=== PATIENT | female | born 1965 | race Caucasian/White ===

== ENCOUNTER → 2017-03-25 | Outpatient (CLI) | payer OTHER ==
--- NOTE | 2017-03-26 09:46 | MM ---
Reason for exam: screening (asymptomatic). Last mammogram was performed 1 year and 2 months ago. History: Family history of breast cancer in maternal aunt, breast cancer in aunt, and premenopausal breast cancer in mother at age 40. Benign excisional biopsy of the right breast, May 28, 2004. Stereotactic core biopsy of the left breast, April 11, 2003. Excisional biopsy of the left breast. Physical Findings: Nurse did not find any significant physical abnormalities on exam. MG 3D Screening Mammo W/Cad Bilateral CC and MLO view(s) were taken. Prior study comparison: February 06, 2016, bilateral MG 3d screening mammo w/cad. January 25, 2015, bilateral MG screening mammo w CAD. The breast tissue is extremely dense which could obscure a lesion on mammography. Finding: There are calcifications in the upper outer and upper inner quadrant of the left breast and in the right central breast. ASSESSMENT: Incomplete: need additional imaging evaluation, BI-RAD 0 RECOMMENDATION: Special view mammogram of both breasts. [facility] will attempt to contact patient to return for supplemental views.
== END | disposition home or self-care (01) ==
LOC: RADMAMWWP 10:21
PROVIDERS: ATTEND Internal Medicine
DX: Z12.31 Encounter for screening mammogram for malignant neoplasm of breast (principal)
CPT/HCPCS: 77063; 77067

== ENCOUNTER → 2017-03-27 | Outpatient (CLI) | payer OTHER ==
--- NOTE | 2017-03-27 11:20 | MM ---
Reason for exam: additional evaluation requested from abnormal screening. Last mammogram was performed less than 1 month ago. History: Patient is postmenopausal. Family history of breast cancer in maternal aunt, breast cancer in aunt, and premenopausal breast cancer in mother at age 40. Benign excisional biopsy of the right breast, May 28, 2004. Stereotactic core biopsy of the left breast, April 11, 2003. Excisional biopsy of the left breast. Physical Findings: Nurse did not find any significant physical abnormalities on exam. MG 3D Work Up W/Cad CALLI Bilateral CC with magnification, ML with magnification, and ML view(s) were taken. Prior study comparison: March 25, 2017, bilateral MG 3d screening mammo w/cad. February 06, 2016, bilateral MG 3d screening mammo w/cad. Finding: There are probably benign calcifications in both breasts some of which layer. 6 month follow up recommended. These results were verbally communicated with the patient and result sheet given to the patient on 03/27/17. ASSESSMENT: Probably benign, BI-RAD 3 RECOMMENDATION: Follow-up diagnostic mammogram of both breasts in 6 months.
== END | disposition home or self-care (01) ==
LOC: RADMAMWWP 08:23
PROVIDERS: ATTEND Internal Medicine
DX: R92.8 Other abnormal and inconclusive findings on diagnostic imaging of breast (principal)
CPT/HCPCS: 77066; G0279

== ENCOUNTER → 2017-11-05 | Outpatient (CLI) | payer OTHER ==
--- NOTE | 2017-11-05 14:30 | MM ---
Reason for exam: additional evaluation requested from prior study. Last mammogram was performed 7 months ago. History: Patient is postmenopausal. Family history of breast cancer in maternal aunt, breast cancer in aunt, and premenopausal breast cancer in mother at age 40. Benign excisional biopsy of the right breast, May 28, 2004. Stereotactic core biopsy of the left breast, April 11, 2003. Excisional biopsy of the left breast. Physical Findings: Nurse did not find any significant physical abnormalities on exam. MG 3D Diag Mammo W/Cad CALLI Bilateral CC and MLO view(s) were taken. XCCM view(s) were taken of the right breast. Prior study comparison: March 27, 2017, bilateral MG 3d work up w/cad CALLI. March 25, 2017, bilateral MG 3d screening mammo w/cad. The breast tissue is heterogeneously dense. This may lower the sensitivity of mammography. There are stable scattered microcalcifications bilaterally nonspecific. There is chronic nodularity bilaterally. These results were verbally communicated with the patient and result sheet given to the patient on 11/05/17. ASSESSMENT: Probably benign, BI-RAD 3 RECOMMENDATION: Follow-up diagnostic mammogram of both breasts in 6 months.
== END | disposition home or self-care (01) ==
LOC: RADMAMWWP 13:32
PROVIDERS: ATTEND Internal Medicine
DX: R92.8 Other abnormal and inconclusive findings on diagnostic imaging of breast (principal)
CPT/HCPCS: 77062; 77066

== ENCOUNTER → 2018-05-13 | Outpatient (CLI) | payer OTHER ==
--- NOTE | 2018-05-13 11:14 | MM ---
Reason for exam: follow-up at short interval from prior study. Last mammogram was performed 6 months ago. History: Patient is postmenopausal. Family history of breast cancer in maternal aunt, breast cancer in aunt, and premenopausal breast cancer in mother at age 40. Benign excisional biopsy of the right breast, May 28, 2004. Stereotactic core biopsy of the left breast, April 11, 2003. Excisional biopsy of the left breast. Physical Findings: Nurse did not find any significant physical abnormalities on exam. MG 3D Diag Mammo W/Cad CALLI Bilateral CC and MLO view(s) were taken. Spot compression CC and spot compression LM view(s) were taken of the left breast. Prior study comparison: November 05, 2017, bilateral MG 3d diag mammo w/cad CALLI. March 27, 2017, bilateral MG 3d work up w/cad CALLI. The breast tissue is heterogeneously dense. This may lower the sensitivity of mammography. Finding: There are indetermiante grouped/clustered calcifications in the upper outer quadrant of the left breast. These results were verbally communicated with the patient and result sheet given to the patient on 05/13/18. ASSESSMENT: Suspicious, BI-RAD 4 RECOMMENDATION: Stereotactic core biopsy of the left breast. Called Dr. Kunz with mammographic findings and has scheduled an appointment for the patient for 05/25/18 at 10:[address] Chaudhary. Biopsy scheduled for 05/19/18 at 10:20. PRELIMINARY REPORT CALLED AND FAXED TO DR. CHAUDHARY ON 05/13/18.
== END | disposition home or self-care (01) ==
LOC: RADMAMWWP 09:32
PROVIDERS: ATTEND Internal Medicine
DX: R92.8 Other abnormal and inconclusive findings on diagnostic imaging of breast (principal)
CPT/HCPCS: 77062; 77066

== ENCOUNTER → 2018-05-19 | Day surgery (SDC) | payer OTHER ==
[2018-05-19 09:40] VITALS: RESP 16; BMI 23.3
[2018-05-19 10:58] VITALS: BP 144/78; PULSE 60; TEMP 98.1
--- NOTE | 2018-05-19 13:07 | MM ---
Stereotactic Mammotome core biopsy left breast. HISTORY: Microcalcifications The Microcalcifications in question within the left breast were targeted by the undersigned. Procedu re was performed by the undersigned. Informed consent was obtained and all of the patients questions were answered. The standard sterile technique was utilized and appropriate local anesthesia was obta ined with 1% licocaine. Mammotome probe was advanced and multiple core samples were obtained and sen t to pathology for interpretation. Microclip marker was deployed at the site of biopsy. Post proced ural mammogram demonstrates appropriate deployment of radiopaque clip marker. The patient tolerated the procedure well and left the department in stable condition. Pathology results are pending. IMPRESSION: Successful stereotactic core biopsy left breast with pathology results pending.
== END ==
LOC: RADMAMWWP 09:18
PROVIDERS: ATTEND Student in an Organized Health Care Education/Training Program
DX: N60.12 Diffuse cystic mastopathy of left breast (principal); N60.22 Fibroadenosis of left breast; D24.2 Benign neoplasm of left breast
CPT/HCPCS: 88305; 19081; A4648; J2001

== ENCOUNTER → 2018-11-27 | Outpatient (CLI) | payer OTHER ==
--- NOTE | 2018-11-27 12:17 | USB ---
Reason for exam: follow-up at short interval from prior study. History: Patient is postmenopausal. Family history of breast cancer in maternal aunt, breast cancer in aunt, and premenopausal breast cancer in mother at age 40. Benign MG stereo VAD BX LT of the left breast, May 19, 2018. Benign excisional biopsy of the right breast, May 28, 2004. Stereotactic core biopsy of the left breast, April 11, 2003. Excisional biopsy of the left breast. Physical Findings: Nurse did not find any significant physical abnormalities on exam. US Breast LT Left complete breast ultrasound includes all four quadrants, the retroareolar region and axilla. Finding demonstrates no cystic or solid lesion seen. Dense tissue throughout. Multifocal dense tissue. These results were verbally communicated with the patient and result sheet given to the patient on 11/27/18. ASSESSMENT: Incomplete: need additional imaging evaluation, BI-RAD 0 RECOMMENDATION: Follow-up diagnostic mammogram of the left breast.
--- NOTE | 2018-11-27 12:20 | MM ---
Reason for exam: follow-up at short interval from prior study. Last mammogram was performed 6 months ago. History: Patient is postmenopausal. Family history of breast cancer in maternal aunt, breast cancer in aunt, and premenopausal breast cancer in mother at age 40. Benign MG stereo VAD BX LT of the left breast, May 19, 2018. Benign excisional biopsy of the right breast, May 28, 2004. Stereotactic core biopsy of the left breast, April 11, 2003. Excisional biopsy of the left breast. MG 3D Diag Mammo W/Cad LT CC, MLO, and XCCL view(s) were taken of the left breast. Prior study comparison: May 13, 2018, bilateral MG 3d diag mammo w/cad [facility]. November 05, 2017, bilateral MG 3d diag mammo w/cad CALLI. The breast tissue is extremely dense which could obscure a lesion on mammography. There are benign appearing similar left calcifications and upper outer quadrant biopsy marker. No suspicious abnormality. Chronic known left nipple inversion. No significant new findings when compared with previous films. These results were verbally communicated with the patient and result sheet given to the patient on 11/27/18. ASSESSMENT: Benign, BI-RAD 2 RECOMMENDATION: Routine screening mammogram of both breasts in 5 months. Back on schedule for March 2019.
== END | disposition home or self-care (01) ==
LOC: RADUSWWP 10:13
PROVIDERS: ATTEND Internal Medicine
DX: R92.8 Other abnormal and inconclusive findings on diagnostic imaging of breast (principal)
CPT/HCPCS: 77061; 77065

== ENCOUNTER → 2019-11-15 | Outpatient (CLI) | payer OTHER ==
--- NOTE | 2019-11-15 08:23 | US ---
EXAMINATION TYPE: US kidneys/renal and bladder DATE OF EXAM: 11/15/2019 COMPARISON: CT CLINICAL HISTORY: R31.9 Hematuria; M54.5 Low back pain. Bilateral flank pain , especially left and mi croscopic hematuria per patient EXAM MEASUREMENTS: Right Kidney: 11.1 x 5.7 x 3.9 cm Left Kidney: 12.0 x 5.1 x 5.0 cm Post Void Residual Volume: 7.2 mL Right Kidney: No hydronephrosis or masses seen Left Kidney: No hydronephrosis or masses seen Bladder: Limited due to incomplete distention Bilateral Jets seen: not seen after 3 minute observation Normal Post Void Residual: yes IMPRESSION: No hydronephrosis or nephrolithiasis. No solid or cystic renal mass. Bladder is limited in evaluation due to incomplete distention.
== END | disposition home or self-care (01) ==
LOC: RADUSWWP 07:05
PROVIDERS: ATTEND Internal Medicine
DX: R31.9 Hematuria, unspecified (principal); M54.5 Low back pain
CPT/HCPCS: 76770

== ENCOUNTER 2021-09-19 13:14 | Emergency (ER) | payer OTHER ==
[2021-09-19 13:20] VITALS: RESP 18
[2021-09-19] MEDS ORDERED: KETOROLAC 15 MG/ML 1 ML VIAL IVP STA (13:33)
[2021-09-19] MEDS ORDERED: SODIUM CHLORIDE 0.9% 1,000 ML IV STA (13:33)
[2021-09-19] MEDS ORDERED: diphenhydrAMINE 50 MG/ML 1 ML VIAL IVP STA (13:33)
[2021-09-19] MEDS ORDERED: ONDANSETRON 4 MG/2 ML VIAL IVP STA (13:33)
--- NOTE | 2021-09-19 13:36 | ED ---
General Adult HPI - General Chief complaint: Syncope Stated complaint: Syncope Time Seen by Provider: 09/19/21 13:20 Source: patient, EMS Mode of arrival: EMS Limitations: no limitations - History of Present Illness Initial comments: Dictation was produced using [employer] dictation software. please excuse any grammatical, word or spelling errors. Chief Complaint: 55-year-old female presents emergency department for syncope History of Present Illness: 85-year-old female presents emergency department for syncope. Patient states that earlier today she [place] when she was sitting at the table. She lost consciousness briefly. Sick above so was witnessed by fellow member. She states that she was unconscious for seconds. No postictal state or history of convulsing movements. Patient states that she fell back however her head was caught by a possible. Patient denies any scalp pain or neck pain. Patient states that she feels improved. She had several alcoholic beverages last night. Patient states that it's very hot and humid at the Site. Denies any numbness and or paresthesias to the arms or legs. patient reports that now she has a mild headache that feels like headaches she's had in the past. Patient denies any cardiac history. States that just prior to the syncope she had some visual changes at that lasted briefly. Denies any palpitations. Patient denies any cardiac history. The ROS documented in this emergency department record has been reviewed and confirmed by me. Those systems with pertinent positive or negative responses have been documented in the HPI. All other systems are other negative and/or noncontributory. PHYSICAL EXAM: General Impression: Alert and oriented x3, not in acute distress HEENT: Normocephalic atraumatic, extra-ocular movements intact, pupils equal and reactive to light bilaterally, mucous membranes moist. Cardiovascular: Heart regular rate and rhythm Chest: Able to complete full sentences, no retractions, no tachypnea Abdomen: abdomen soft, non-tender, non-distended, no organomegaly Musculoskeletal: Pulses present and equal in all extremities, no peripheral edema Motor: no focal deficits noted Neurological: CN II-XII grossly intact, no focal motor or sensory deficits noted Skin: Intact with no visualized rashes Psych: Normal affect and mood ED course: 55-year-old female presents emergency per a syncopal episode. Vital signs upon arrival are within acceptable limits. Patient's well appearing at bedside. EKG does not show any signs of acute processes. Patient states that she is having a migraine headache. Patient observed in the emergency department for approximately one hour 2 minutes. Patient reevaluated bedside at 2:20 PM found to be in stable medical condition. Appetite evaluation obtained. CBC unremarkable. Metabolic panel shows mild acidosis. Highly suspect that patient's syncopal episode was due to mild dehydration. Patient has no high-risk features. Denies any cardiac history. Patient has stable vitals well-appearing. He was better after headache cocktail. Disposition options were discussed. Patient is agreeable for discharge with follow-up to primary care doctor. Patient advised to hydrate herself well and avoid any alcohol for the time being. EKG interpretation: Ventricular rate 73, sinus rhythm,. 180, QS 82, QTc 433. No IA prolongation, no QTC prolongation, no ST or T-wave changes noted. Overall, this EKG is unremarkable - Related Data Home Medications Medication Instructions Recorded Confirmed Losartan Potassium [Cozaar] 100 mg PO DAILY 05/13/18 09/19/21 atenoloL [Tenormin] 25 mg PO HS 09/19/21 09/19/21 Allergies Allergy/AdvReac Type Severity Reaction Status Date / Time Penicillins Allergy Rash/Hives Verified 09/19/21 14:11 erythromycin base AdvReac Unknown Verified 09/19/21 14:11 Review of Systems ROS Statement: Those systems with pertinent positive or pertinent negative responses have been documented in the HPI. ROS Other: All systems not noted in ROS Statement are negative. Past Medical History Past Medical History: Asthma, Hypertension History of Any Multi-Drug Resistant Organisms: None Reported Past Surgical History: Breast Surgery, Section, Cholecystectomy Additional Past Surgical History / Comment(s): RIGHT EXCISIONAL, LEFT EXCISIONAL Past Anesthesia/Blood Transfusion Reactions: No Reported Reaction Past Psychological History: No Psychological Hx Reported Smoking Status: Current every day smoker Past Alcohol Use History: Daily Past Drug Use History: None Reported General Exam Limitations: no limitations Course Vital Signs 09/19/21 13:15 Temperature 98.8 F Pulse Rate 89 Respiratory 18 Rate Blood Pressure 144/91 O2 Sat by Pulse 98 Oximetry Medical Decision Making - Lab Data Result diagrams: 09/19/21 13:38 09/19/21 13:38 Lab Results 09/19/21 09/19/21 Range/Units 13:38 13:38 WBC 4.3 (3.8-10.6) k/uL RBC 4.47 (3.80-5.40) m/uL Hgb 14.7 (11.4-16.0) gm/dL Hct 43.8 (34.0-46.0) % MCV 98.0 (80.0-100.0) fL MCH 32.8 (25.0-35.0) pg MCHC 33.5 (31.0-37.0) g/dL RDW 12.2 (11.5-15.5) % Plt Count 244 (150-450) k/uL MPV 7.0 Neutrophils % 62 % Lymphocytes % 27 % Monocytes % 6 % Eosinophils % 2 % Basophils % 1 % Neutrophils # 2.7 (1.3-7.7) k/uL Lymphocytes # 1.1 (1.0-4.8) k/uL Monocytes # 0.2 (0-1.0) k/uL Eosinophils # 0.1 (0-0.7) k/uL Basophils # 0.0 (0-0.2) k/uL Sodium 138 (137-145) mmol/L Potassium 4.1 (3.5-5.1) mmol/L Chloride 105 (98-107) mmol/L Carbon Dioxide 20 L (22-30) mmol/L Anion Gap 13 mmol/L BUN 15 (7-17) mg/dL Creatinine 0.68 (0.52-1.04) mg/dL Est GFR (CKD-EPI)AfAm >90 (>60 ml/min/1.73 sqM) Est GFR (CKD-EPI)NonAf >90 (>60 ml/min/1.73 sqM) Glucose 112 H (74-99) mg/dL Calcium 9.0 (8.4-10.2) mg/dL Disposition Clinical Impression: Syncope Disposition: HOME SELF-CARE Condition: Fair Instructions (If sedation given, give patient instructions): Syncope (ED) Is patient prescribed a controlled substance at d/c from ED?: No Referrals: Tami Kunz MD [Primary Care Provider] - 1-2 days Time of Disposition: 14:18
[2021-09-19 13:50] LABS: Basophils % (A) 1 %; Eosinophils # (A) 0.1 k/uL (0-0.7); Eosinophils % (A) 2 %; HCT 43.8 % (34.0-46.0); HGB 14.7 gm/dL (11.4-16.0); Lymphocytes # (A) 1.1 k/uL (1.0-4.8); Lymphocytes % (A) 27 %; MCH 32.8 pg (25.0-35.0); MCHC 33.5 g/dL (31.0-37.0); Monocytes # (A) 0.2 k/uL (0-1.0); Monocytes % (A) 6 %; Neutrophils # (A) 2.7 k/uL (1.3-7.7); Neutrophils % (A) 62 %; Platelet Count 244 k/uL (150-450); RBC 4.47 m/uL (3.80-5.40); RDW 12.2 % (11.5-15.5); WBC 4.3 k/uL (3.8-10.6)
[2021-09-19 14:07] LABS: African American GFR (CKD) >90 (>60 ml/min/1.73 sqM); Anion Gap 13 mmol/L; Blood Urea Nitrogen 15 mg/dL (7-17); Carbon Dioxide 20 mmol/L (22-30); Chloride 105 mmol/L (98-107); Glucose 112 mg/dL (74-99); Non-African American GFR(CKD) >90 (>60 ml/min/1.73 sqM); Potassium 4.1 mmol/L (3.5-5.1); Sodium 138 mmol/L (137-145)
[2021-09-19 14:41] VITALS: BP 141/90; PULSE 67; TEMP 98.5
== END 2021-09-19 14:41 | disposition home or self-care (01) ==
LOC: EC 13:14
DX: R55 Syncope and collapse (principal); J45.909 Unspecified asthma, uncomplicated; I10 Essential (primary) hypertension; F17.200 Nicotine dependence, unspecified, uncomplicated; Z88.0 Allergy status to penicillin; Z88.8 Allergy status to other drugs, medicaments and biological substances
CPT/HCPCS: 36415; 80048; 85025; 93005; 99285

== ENCOUNTER → 2021-10-09 | Outpatient (CLI) | payer BC ==
--- NOTE | 2021-10-10 09:18 | MM ---
Reason for Exam: Screening (asymptomatic). Last mammogram was performed 3 year(s) and 4 month(s) ago. Patient History: Menarche at age 10. First Full-Term at age 24. Postmenopausal. 05/28/2004, Benign Excisional Biopsy on the right side. Excisional Biopsy on the Left side. 05/19/2018, Benign Core Biopsy on the left side. 04/11/2003, Stereotactic Core Biopsy on the Left side. Maternal aunt had breast cancer under age 50. Maternal aunt had breast cancer. Mother had breast cancer, age 40. Risk Values: Anahi 5 year model risk: 3.8%. NCI Lifetime model risk: 21.4%. Prior Study Comparison: 11/05/2017 Bilateral Diagnostic Mammogram, [facility]. 05/13/2018 Bilateral Diagnostic Mammogram, [facility]. 11/27/2018 Left Diagnostic Mammogram, [facility]. Tissue Density: The breast tissue is heterogeneously dense. This may lower the sensitivity of mammography. Findings: Analyzed By CAD. No suspicious groups of microcalcifications, spiculated or lobular masses, architectural distortion or other secondary signs of malignancy are mammographically apparent. Overall Assessment: Benign, BI-RAD 2 Management: Screening Mammogram of both breasts in 1 year. A negative mammogram report should not preclude additional follow up of suspicious palpable abnormalities. Patient should continue monthly self breast exam. A clinical breast exam by your physician is recommended on an annual basis and results should be correlated with mammographic findings. Electronically signed and approved by: Kt Dennis D.O. Radiologis
== END | disposition home or self-care (01) ==
LOC: RADMAMWWP 13:14
PROVIDERS: ATTEND Internal Medicine
DX: Z12.31 Encounter for screening mammogram for malignant neoplasm of breast (principal); Z78.0 Asymptomatic menopausal state; Z80.3 Family history of malignant neoplasm of breast
CPT/HCPCS: 77063; 77067

== ENCOUNTER → 2022-01-10 | Outpatient (CLI) | payer BC ==
--- NOTE | 2022-01-11 07:53 | CT ---
EXAMINATION TYPE: CT brain w con DATE OF EXAM: 01/10/2022 COMPARISON: None. HISTORY: syncope episode x3 months ago. C/o memory loss issues and headache since then CT DLP: 1180 mGycm Automated exposure control for dose reduction was used. CONTRAST: CT scan of the head is performed with IV Contrast, patient injected with 100 mL of Isovue 300. FINDINGS: There is no abnormal enhancing mass or midline shift identified. The ventricles and sulci are within normal limits in size for patient's age. Melendez-white matter differentiation fairly well maintained. N leandro septum deviated to left of midline. The globes are intact and the visualized sinuses are clear. IMPRESSION: Source of patient's symptoms is not identified.
--- NOTE | 2022-01-11 08:19 | CTL ---
EXAMINATION TYPE: CT Low Dose Lung DATE OF EXAM ORDERED: 01/10/2022 HISTORY: Long-term tobacco use. Lung cancer screening CT DLP: [address] CTDI: 2.28 mGy Automated exposure control for dose reduction was used. SCREENING VISIT: Baseline COMPARISON: None TECHNIQUE: Low dose computed tomography scan was performed through the chest at 1 mm thick sections a nd reconstructed images in multiple planes at 1 mm and [address] DIAGNOSTIC QUALITY: Limited, but interpretable Motion artifact degradation is present in the lower lungs. FINDINGS: LUNG NODULES: None. LUNGS: COPD: Severity: Mild Fibrosis: Severity: Mild Lymph nodes: None Other findings: The thoracic aorta measures up to 3.5 cm in diameter RIGHT PLEURAL SPACE: Effusion: None Calcification: None Thickening: None Pneumothorax: None LEFT PLEURAL SPACE: Effusion: None Calcification: None Thickening: None Pneumothorax: None HEART: Heart Size: Normal but moderate left atrial dilatation noted Coronary Calcification: Focal mild to moderate in the proximal LAD Pericardial Effusion: None OTHER FINDINGS: Upper abdomen: None Bony thorax: Scoliotic curvature with multilevel spurring in the thoracic spine Supraclavicular region: None Other: None IMPRESSION: Suboptimal study without suspicious nodules. CT LUNG RAD AND CT CHEST RECOMMENDATION: Lung-Rad 1 Negative: Continue annual screening with LDCT in 12 months. S Modifier (other clinically significant findings): None
== END | disposition home or self-care (01) ==
LOC: RADCTMAIN 16:25
PROVIDERS: ATTEND Internal Medicine
DX: Z12.2 Encounter for screening for malignant neoplasm of respiratory organs (principal); R41.3 Other amnesia; Z87.891 Personal history of nicotine dependence
CPT/HCPCS: 70460; 71271; Q9967

== ENCOUNTER → 2022-03-01 | Outpatient (CLI) | payer BC ==
[2022-03-01 16:32] LABS: ALT 31 U/L (8-44); AST 23 U/L (13-35); Chol/HDL Ratio 2.76 Ratio; LDL Cholesterol,Calculated 78.8 mg/dL (0.0-131.0); VLDL Calculation 13.56 mg/dL (5.00-40.00)
== END | disposition home or self-care (01) ==
LOC: LABWHC1 10:24
PROVIDERS: ATTEND Internal Medicine Interventional Cardiology
DX: E78.2 Mixed hyperlipidemia (principal)
CPT/HCPCS: 36415; 80061; 84450; 84460

== ENCOUNTER → 2022-06-03 | Outpatient (CLI) | payer BC ==
[2022-06-03 16:04] LABS: Chol/HDL Ratio 3.06 Ratio; LDL Cholesterol,Calculated 82.5 mg/dL (0.0-131.0)
[2022-06-03 16:16] LABS: ALT 36 U/L (8-44); AST 28 U/L (13-35); Albumin 4.7 g/dL (3.8-4.9); Albumin/Globulin Ratio 2.28 (1.60-3.17); Alkaline Phosphatase 129 U/L (41-126); BUN/Creat Ratio 15.46 Ratio (12.00-20.00); Blood Urea Nitrogen 11.3 mg/dL (9.0-27.0); Carbon Dioxide 26.9 mmol/L (20.0-27.5); Chloride 104 mmol/L (96-109); Glucose 92 mg/dL (70-110); Non-African American GFR(CKD) 90.6 (60.0-200.0); Potassium 4.4 mmol/L (3.5-5.5); Sodium 140 mmol/L (135-145); Total Protein 6.7 g/dL (6.2-8.2)
== END | disposition home or self-care (01) ==
LOC: LABWHC1 10:16
PROVIDERS: ATTEND Internal Medicine Interventional Cardiology
DX: I10 Essential (primary) hypertension (principal); E78.2 Mixed hyperlipidemia
CPT/HCPCS: 36415; 80053; 80061

== ENCOUNTER → 2022-12-26 | Outpatient (CLI) | payer BC ==
--- NOTE | 2022-12-27 08:30 | MM ---
Reason for Exam: Screening (asymptomatic). Last mammogram was performed 1 year(s) and 3 month(s) ago. Patient History: Menarche at age 10. First Full-Term at age 24. Postmenopausal. 05/28/2004, Benign Excisional Biopsy on the right side. Excisional Biopsy on the Left side. 05/19/2018, Benign Core Biopsy on the left side. 04/11/2003, Stereotactic Core Biopsy on the Left side. Maternal aunt had breast cancer under age 50. Maternal aunt had breast cancer. Mother had breast cancer, age 40. Risk Values: Anahi 5 year model risk: 4.1%. NCI Lifetime model risk: 20.6%. Prior Study Comparison: 05/13/2018 Bilateral Diagnostic Mammogram, [facility]. 11/27/2018 Left Diagnostic Mammogram, [facility]. 10/09/2021 Bilateral MG 3D screening mammo w/cad, [facility]. Tissue Density: The breast tissue is heterogeneously dense. This may lower the sensitivity of mammography. Findings: Analyzed By CAD. Left breast biopsy clip. There is no suspicious group of microcalcifications or new suspicious mass. Benign-appearing calcifications bilaterally. Overall Assessment: Benign, BI-RAD 2 Management: Screening Mammogram of both breasts in [address] [facility] will attempt to contact patient to return for supplemental views and ultrasound if indicated. Patient should continue monthly self-breast exams. A clinical breast exam by your physician is recommended on an annual basis. This exam should not preclude additional follow-up of suspicious palpable abnormalities. Note on Anahi scores and lifetime risk: 1. A Anahi score greater than 3% is considered moderate risk. If this is the case, consider specialist referral to assess eligibility for a risk reducing agent. 2. If overall lifetime risk for the development of breast cancer is 20% or higher, the patient may qualify for future screening with alternating mammogram and breast MRI. Electronically signed and approved by: Lorne Wilkins DO
== END | disposition home or self-care (01) ==
LOC: RADMAMWWP 07:43
PROVIDERS: ATTEND Internal Medicine
DX: Z12.31 Encounter for screening mammogram for malignant neoplasm of breast (principal); Z78.0 Asymptomatic menopausal state; Z80.3 Family history of malignant neoplasm of breast
CPT/HCPCS: 77063; 77067

== ENCOUNTER 2023-02-26 09:59 | Day surgery (SDC) | payer BC ==
[2023-02-19 15:03] VITALS: BMI 28.3
[~2023-02-26 09:59] MED LIST: LACTATED RINGERS 1,000 ML IV SCH
[2023-02-26] MEDS ORDERED: LIDOCAINE 1% (10MG/ML) FOR IV START INTRADERMA ONE (10:27)
[2023-02-26 10:37] LABS: Glucose,Whole Blood 101 mg/dL (70-110)
[2023-02-26 10:49] VITALS: TEMP 97.6
[2023-02-26] MEDS ORDERED: PROPOFOL 10 MG/ML 20 ML VIAL IV ONE (10:56)
--- NOTE | 2023-02-26 11:17 | P.PCN ---
Date of Procedure: 02/26/23 Procedure(s) Performed: BRIEF HISTORY: Patient is a 57-year-old pleasant FEMALE scheduled for an elective colonoscopy as a part of evaluation of prior history of colon polyps. PROCEDURE PERFORMED: Colonoscopy with snare polypectomy y. PREOPERATIVE DIAGNOSIS: History of colon polyps. IV sedation per Anesthesia. PROCEDURE: After informed consent was obtained, the patient, was brought into the endoscopy unit. IV sedation was administered by Anesthesia under continuous monitoring. Digital rectal examination was normal. Initially the Olympus CF-160 flexible video colonoscope was then inserted in the rectum, gradually advanced into the cecum without any difficulty. Careful examination was performed as the scope was gradually being withdrawn. Ileocecal valve and the appendiceal orifice were visualized and appeared normal. Prep was excellent. Mucosa of the cecum, ascending colon, transverse colon, descending colon, appeared normal. In the sigmoid: There was a 5 limited polyp that was removed by cold snare polypectomy. Rest of the sigmoid colon, and rectum appeared normal. Retroflexion was performed in the rectum and no lesions were seen. The patient tolerated the procedure well. IMPRESSION: 5 mm sigmoid polyp status post cold snare polypectomy Rest of the colon appeared normal RECOMMENDATIONS: Findings of this examination were discussed with the patient as her family. He was advised to follow with the biopsy results and if the biopsy results adenoma he can have a repeat colonoscopy in 5 years
[2023-02-26 11:46] VITALS: BP 129/75; PULSE 57
[2023-02-26 11:47] VITALS: RESP 20
== END 2023-02-26 12:05 | disposition home or self-care (01) ==
LOC: ORWHC2ENDO 09:59
PROVIDERS: ATTEND Internal Medicine Gastroenterology
DX: Z12.11 Encounter for screening for malignant neoplasm of colon (principal); D12.5 Benign neoplasm of sigmoid colon; I10 Essential (primary) hypertension; E78.5 Hyperlipidemia, unspecified; F17.210 Nicotine dependence, cigarettes, uncomplicated; J45.909 Unspecified asthma, uncomplicated; Z88.0 Allergy status to penicillin; Z88.1 Allergy status to other antibiotic agents; Z79.82 Long term (current) use of aspirin; Z86.010 Personal history of colon polyps; Z79.899 Other long term (current) drug therapy
CPT/HCPCS: 88305; 45385; J2704

== ENCOUNTER → 2023-03-05 | Outpatient (CLI) | payer BC ==
--- NOTE | 2023-03-07 18:01 | CTL ---
EXAMINATION TYPE: CT Low Dose Lung DATE OF EXAM ORDERED: 03/05/2023 HISTORY: . Lung cancer screening CT DLP: 79.[address] CTDI: 2.5 mGy Automated exposure control for dose reduction was used. SCREENING VISIT: Subsequent COMPARISON: 01/10/2022 TECHNIQUE: Low dose computed tomography scan was performed through the chest at 1 mm thick sections a nd reconstructed images in the coronal plane at [address] DIAGNOSTIC QUALITY: Satisfactory FINDINGS: LUNG NODULES: Present, detailed below: 1. There is some minimal pleural thickening along the posterior left midlung measuring 0.5 cm. Series 4 image 170. This appears to be new. Follow-up in 6 months is recommended. LUNGS: COPD: Severity: None Fibrosis: Severity: None Lymph nodes: None Other findings: None RIGHT PLEURAL SPACE: Effusion: None Calcification: None Thickening: None Pneumothorax: None LEFT PLEURAL SPACE: Effusion: None Calcification: None Thickening: None Pneumothorax: None HEART: Heart Size: Normal Coronary calcification: Mild Pericardial effusion: None OTHER FINDINGS: Upper abdomen: Normal Bony thorax: Normal Supraclavicular region: Normal Other: Ascending thoracic aorta at the level the main pulmonary artery measures 3.8 cm. The main pul monary artery at the bifurcation measures 2.7 cm. IMPRESSION: 1. Newly identified minimal pleural thickening. Follow-up CT chest in 6 months can be performed for r eevaluation. FOLLOW UP CT CHEST RECOMMENDATION: Follow-up low dose CT chest [address] LUNG RAD: Lung-Rad 3 Probably Benign
== END | disposition home or self-care (01) ==
LOC: RADCTMAIN 11:30
PROVIDERS: ATTEND Internal Medicine
DX: Z12.2 Encounter for screening for malignant neoplasm of respiratory organs (principal); J94.8 Other specified pleural conditions; F17.210 Nicotine dependence, cigarettes, uncomplicated
CPT/HCPCS: 71271

== ENCOUNTER → 2023-11-06 | Outpatient (CLI) | payer BC ==
--- NOTE | 2023-11-10 09:44 | CT ---
EXAMINATION TYPE: CT chest w con DATE OF EXAM: 11/06/2023 COMPARISON: 03/05/2023 HISTORY: Follow up for pleural plaque found on prior LDCT. CT DLP: 241.8 mGycm, Automated exposure control for dose reduction was used. CONTRAST: Performed injected with 100ml mL of Isovue 300. TECHNIQUE: Axial images were obtained at 5 mm thick sections. Reconstructed images are reviewed on [employer] computer in the coronal plane. FINDINGS: Portion of the thyroid visualized is normal. No suspicious lung nodules or focal infiltrates are present. Pleural thickening is not appreciated on the standard CT chest. Low-dose CT chest in 6 months can be performed. No enlarged mediastinal or hilar adenopathy is evident. The ascending aorta diameter at the level o f the main pulmonary artery is 3.5 cm. The main pulmonary artery diameter at the bifurcation is 2.[address] sections are obtained through the upper abdomen. Abdomen is essentially unremarkable. IMPRESSION: 1. No suspicious acute changes. Previous pleural thickening not identified. Follow-up low-dose CT karishma st recommended in 6 months. [facility], , 11/10/2023 9:42 AM
== END | disposition home or self-care (01) ==
LOC: RADCTMAIN 16:07
PROVIDERS: ATTEND Internal Medicine
DX: J92.9 Pleural plaque without asbestos (principal)
CPT/HCPCS: 71260

== ENCOUNTER → 2023-11-06 | Outpatient (CLI) | payer BC ==
--- NOTE | 2023-11-07 19:03 | BD ---
EXAMINATION TYPE: Axial Bone Density DATE OF EXAM: 11/06/2023 CLINICAL HISTORY: 57 years old Female. ICD-10 CODE: [id number] OSTEO RIGHT HIP Height: 5 ft 2 in Weight: 155 FRAX RISK QUESTIONS: Alcohol (3 or more units per day): no Family History (Parent hip fracture): no Glucocorticoids (More than 3mos): no (Ex: prednisone, prednisolone, methylprednisolone, dexamethasone, and hydrocortisone). History of Fracture in Adulthood: yes Secondary Osteoporosis: 1. Type 1 Diabetes: no 2. Hyperthyroidism: no 3. Menopause before 45: no 4. Malnutrition: no 5. Chronic liver disease: no Rheumatoid Arthritis: no Current Tobacco Use: yes RISK FACTORS HISTORY OF: History of Wrist Fracture: rt wrist as a child Surgery to Spine/Hip(right/left)/Wrist (right/left): no MEDICATIONS: Thyroid Medications: none Osteoporosis Medications: none EXAM MEASUREMENTS: Bone mineral densitometry was performed using the [employer]. Bone mineral density as measured about the Lumbar spine is: ----- L1-L4(G/cm2): 1.145 T Score Values are as follows: ----- L1: -0.1 ----- L2: -1.0 ----- L3: 0.3 ----- L4: -0.5 ----- L1-L4: -0.3 Z Score Values are as follows: ----- L1: 0.9 ----- L2: 0.0 ----- L3: 1.3 ----- L4: 0.5 ----- L1-L4: 0.7 baseline Bone mineral density about the R hip (g/cm2): 0.799 Bone mineral density about the L hip (g/cm2): 0.820 T Score values are as follows: -----R Neck: -1.7 -----L Neck: -1.6 -----R Total: -1.4 -----L Total: -1.4 Z Score values are as follows: -----R Neck: -0.6 -----L Neck: -0.5 -----R Total: -0.6 -----L Total: -0.6 baseline FRAX%s: The graph provided illustrates a 14.9 % chance for a major osteoporotic fx and a 2.7 % chance for the hips probability for fx in 10 years time. IMPRESSION: Osteopenia (T Score between -2.5 and -1). There is slightly increased risk of fracture and the patient may be considered for treatment. Re-Screen 2-5 years. NOTE: T-SCORE=SD OF THE YOUNG ADULT MEAN. [facility], , 11/07/2023 7:01 PM
== END | disposition home or self-care (01) ==
LOC: RADBDWWP 15:05
PROVIDERS: ATTEND Internal Medicine
CPT/HCPCS: 77080

== ENCOUNTER → 2023-12-29 | Outpatient (CLI) | payer BC ==
--- NOTE | 2023-12-30 11:10 | MM ---
Reason for Exam: Screening (asymptomatic). Last screening mammogram was performed 12 month(s) ago. Patient History: Menarche at age 10. First Full-Term at age 24. Postmenopausal. 05/28/2004, Benign Excisional Biopsy on the right side. Excisional Biopsy on the Left side. 05/19/2018, Benign Core Biopsy on the left side. 04/11/2003, Stereotactic Core Biopsy on the Left side. Maternal aunt had breast cancer under age 50. Maternal aunt had breast cancer. Mother had breast cancer, age 40. Risk Values: Anahi 5 year model risk: 4.2%. NCI Lifetime model risk: 20.1%. Prior Study Comparison: 11/27/2018 Left Diagnostic Mammogram, [facility]. 10/09/2021 Bilateral MG 3D screening mammo w/cad, [facility]. 12/26/2022 Bilateral MG 3D screening mammo w/cad, [facility]. Tissue Density: The breasts are heterogeneously dense, which may obscure small masses. Findings: Analyzed By CAD. Left breast biopsy clip. Right breast: There is no suspicious group of microcalcifications or new suspicious mass. Left breast: There is no suspicious group of microcalcifications or new suspicious mass. Overall Assessment: Benign, BI-RAD 2 Management: Screening Mammogram of both breasts in [address] [facility] will attempt to contact patient to return for supplemental views and ultrasound if indicated. Patient should continue monthly self-breast exams. A clinical breast exam by your physician is recommended on an annual basis. This exam should not preclude additional follow-up of suspicious palpable abnormalities. Note on Anahi scores and lifetime risk: 1. A Anahi score greater than 3% is considered moderate risk. If this is the case, consider specialist referral to assess eligibility for a risk reducing agent. 2. If overall lifetime risk for the development of breast cancer is 20% or higher, the patient may qualify for future screening with alternating mammogram and breast MRI. [facility], , 12/30/2023 11:06 AM. Electronically signed and approved by: Lorne Wilkins DO
== END | disposition home or self-care (01) ==
LOC: RADMAMWWP 10:47
PROVIDERS: ATTEND Internal Medicine
DX: Z12.31 Encounter for screening mammogram for malignant neoplasm of breast (principal); Z78.0 Asymptomatic menopausal state; Z80.3 Family history of malignant neoplasm of breast; R92.333 Mammographic heterogeneous density, bilateral breasts
CPT/HCPCS: 77063; 77067

== ENCOUNTER → 2024-07-20 | Outpatient (CLI) | payer BC ==
--- NOTE | 2024-07-20 10:18 | CTL ---
EXAMINATION TYPE: CT Low Dose Lung DATE OF EXAM ORDERED: 07/20/2024 COMPARISON: CT chest 11/06/2023, CT Low Dose Lung 03/05/2023, 01/10/2022 CLINICAL INDICATION: Female, 58 years old with history of Z12.2 ENCNTR SCREEN F17.210 NICOTINE DEPEND ENCE; PHH, Current smoker, 1/2 PPD x50yrs., Lung cancer screening, History of Smoking/tobacco use. TECHNIQUE: Low dose computed tomography scan was performed through the chest at 1 mm thick sections a nd reconstructed images in multiple planes at 1 mm and [address] DLP: 97.[address] CTDI: 2.8 mGy Automated exposure control for dose reduction was used. CT DIAGNOSTIC QUALITY: Satisfactory FINDINGS: Nodules: No clinically significant pulmonary nodule. Previously seen left midlung pleural thickening is no qasim kailee visualized. LUNGS: COPD: Severity: None Fibrosis: Severity: None Lymph nodes: None Other findings: Minimal lingular subsegmental atelectasis. Minimal linear atelectasis within the medi al aspect of the right upper lobe. RIGHT PLEURAL SPACE: Effusion: None Calcification: None Thickening: None Pneumothorax: None LEFT PLEURAL SPACE: Effusion: None Calcification: None Thickening: None Pneumothorax: None HEART: Heart Size: Normal Coronary Calcification: Focal mild to moderate in the proximal LAD. Pericardial Effusion: None OTHER FINDINGS: Upper abdomen: None Bony thorax: Moderate multilevel degenerative disc disease of the thoracic spine. Supraclavicular region: None Other: Similar soft tissue within the prevascular space possibly representing residual thymus or thym ic rebound. Mild atherosclerotic calcification of the aorta and its branches. IMPRESSION: No clinically significant pulmonary nodule. Previously seen left midlung pleural thickeni ng is no longer visualized. CT LUNG RAD AND CT CHEST RECOMMENDATION: Lung-Rad 1 Negative: Continue annual screening with LDCT in 12 months. S Modifier (other clinically significant findings): None [facility], , 07/20/2024 10:15 AM
== END | disposition home or self-care (01) ==
LOC: RADCTMAIN 09:12
PROVIDERS: ATTEND Internal Medicine
DX: Z12.2 Encounter for screening for malignant neoplasm of respiratory organs (principal); F17.210 Nicotine dependence, cigarettes, uncomplicated
CPT/HCPCS: 71271